=== PATIENT | female | born 1985 | race American Indian/Alaskan Native ===

== ENCOUNTER 2017-01-08 13:57 | Emergency (ER) | payer OTHER, BC ==
[2017-01-08 14:15] VITALS: BMI 38.6
[2017-01-08] MEDS ORDERED: Lidocaine 5% Patch TD STA (14:26)
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
[2017-01-08] MEDS ORDERED: Lidocaine 5% Patch TD ONE (14:32)
[2017-01-08 16:02] LABS: BASO % 0.2 % (0.0-2.0); EOS # 0.1 K/uL (0.0-0.7); EOS % 0.8 % (0.0-4.0); HEMATOCRIT 28.5 % (34.0-47.0); LYMPH # 1.6 K/uL (1.0-4.3); LYMPH % 13.3 % (20.0-40.0); MEAN CELL VOLUME 73.3 fL (81.0-99.0); MEAN CORPUSCULAR HEMOGLOBIN 22.7 pg (27.0-31.0); MEAN PLATELET VOLUME 9.8 fL (7.2-11.7); MONO # 0.8 K/uL (0.0-0.8); MONO % 6.5 % (0.0-10.0)
[2017-01-08 16:19] LABS: ALKALINE PHOSPHATASE 296 U/L (38-126); ALT/SGPT 36 U/L (9-52); AST/SGOT 21 U/L (14-36); BILIRUBIN,TOTAL 0.4 mg/dL (0.2-1.3); BLOOD UREA NITROGEN 7 mg/dL (7-17); CALCIUM 8.6 mg/dl (8.6-10.4); CARBON DIOXIDE 22 mmol/L (22-30); CHLORIDE 102 mmol/L (98-107); GFR AFRICAN-AMERICAN > 60; GLUCOSE,RANDOM 69 mg/dL (65-105); POTASSIUM 3.8 mmol/L (3.6-5.2); SODIUM 132 mmol/L (132-148); TOTAL PROTEIN 8.6 g/dL (6.3-8.3)
[2017-01-08 16:31] LABS: ALB/GLOB RATIO 0.9 (1.0-2.1)
[2017-01-08] MEDS ORDERED: Dextrose 5%/Lactated Ringer's 1,000 ML IV SCH (16:45)
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
[2017-01-08 22:10] VITALS: BP 91/71; PULSE 117; RESP 20; TEMP 98.1; O2SAT 98
== END 2017-01-08 18:09 | disposition home or self-care (01) ==
LOC: C.EROB 13:57 → C.ER 13:57 → SUPCPDRO 13:57 → C.EROB 18:09
DX: Z04.1 Encounter for examination and observation following transport accident (principal)
CPT/HCPCS: 80053; 85025; 86850; 86900; 99285; J7120

== ENCOUNTER 2017-02-07 07:55 | Inpatient (IN) | payer BC ==
[2017-02-07] MEDS ORDERED: Sodium Citrate/Citric Acid 15 ml Sol PO ONE (08:10)
[2017-02-07] MEDS ORDERED: cefOXitin IV 2 gm in Dextrose 2 GM/50 ML BAG IVPB ONE ×3 (08:10→15:00)
[2017-02-07] MEDS ORDERED: Lactated Ringer's 1,000 ML IV SCH (08:15)
[2017-02-07 09:16] LABS: BASO % 0.3 % (0.0-2.0); EOS # 0.1 K/uL (0.0-0.7); EOS % 0.6 % (0.0-4.0); HEMATOCRIT 26.4 % (34.0-47.0); LYMPH # 1.6 K/uL (1.0-4.3); LYMPH % 13.8 % (20.0-40.0); MEAN CORPUSCULAR HEMOGLOBIN 21.7 pg (27.0-31.0); MEAN CORPUSCULAR HGB CONC 30.7 g/dL (33.0-37.0); MONO # 0.9 K/uL (0.0-0.8); MONO % 7.2 % (0.0-10.0); NRBC % 0.2 % (0.0-2.0); RED CELL DISTRIBUTION WIDTH 17.8 % (11.5-14.5); WHITE BLOOD COUNT 11.9 K/uL (4.8-10.8)
[2017-02-07 09:19] LABS: URINE BACTERIA RARE (<OCC); URINE BILIRUBIN NEGATIVE (NEGATIVE); URINE BLOOD NEGATIVE (NEGATIVE); URINE COLOR Straw (YELLOW); URINE GLUCOSE (UA) NORMAL (Normal); URINE KETONE NEGATIVE (NEGATIVE); URINE LEUKOCYTE ESTERASE NEG Leu/uL (Negative); URINE PROTEIN NEGATIVE (NEGATIVE); URINE UROBILINOGEN NORMAL mg/dL (0.2-1.0); WBC URINE 1 /hpf (0-5)
[2017-02-07 09:22] LABS: MEAN CELL VOLUME 70.7 fL (81.0-99.0)
[2017-02-07 09:32] LABS: ALKALINE PHOSPHATASE 360 U/L (38-126); ALT/SGPT 44 U/L (9-52); AST/SGOT 31 U/L (14-36); BILIRUBIN,TOTAL 0.6 mg/dL (0.2-1.3); BLOOD UREA NITROGEN 7 mg/dL (7-17); CALCIUM 8.3 mg/dl (8.6-10.4); CARBON DIOXIDE 26 mmol/L (22-30); CHLORIDE 102 mmol/L (98-107); GFR AFRICAN-AMERICAN > 60; GLUCOSE,RANDOM 79 mg/dL (65-105); POTASSIUM 3.7 mmol/L (3.6-5.2); SODIUM 133 mmol/L (132-148); TOTAL PROTEIN 6.8 g/dL (6.3-8.3)
[2017-02-07] MEDS ORDERED: Sodium Citrate/Citric Acid 15 ml Sol ONE (10:36)
[2017-02-07] MEDS ORDERED: Oxytocin 10 Units/ml Inj ONE (10:37)
[2017-02-07] MEDS ORDERED: Oxytocin 20 units in LR 2,000 ML IV ONE (10:37)
[2017-02-07] MEDS ORDERED: Morphine 1 mg/ml preservative-free Inj(Duramorph) ONE (11:25)
[2017-02-07] MEDS ORDERED: Triamcinolone Acetonide 40 mg/mL Inj IJ ONE (11:45)
[2017-02-07] MEDS ORDERED: Triamcinolone Acetonide 40 mg/mL Inj ONE ×2 (11:55→12:38)
[2017-02-07] MEDS ORDERED: ePHEDrine 50 mg/ml Inj ONE (12:45)
[2017-02-07] MEDS ORDERED: Morphine 4 MG/ML VIAL ONE (13:01)
[2017-02-07] MEDS ORDERED: DiphenhydrAMINE 50 mg/ml Inj IVP PRN (13:11)
[2017-02-07] MEDS ORDERED: cefOXitin IV 2 gm in Dextrose 2 GM/50 ML BAG IVPB SCH (13:15)
--- NOTE | 2017-02-07 14:16 | OBHP ---
Datetime: 02/07/2017 08:21 IP Adm Impression: Term, intrauterine IP Admit Plan: Admit to unit Admit Comment, IP Provider: Patient is a 32 year old at 39w0d CHANDRAKANT 02/14/17 who presents to L +D for scheduled C/S. Patient is doing well, offers no complaints at this time. Endorses +FM, denies CTX, VB, LOF. Patient is a private of Dr Gill. Issues: Denies OB Hx: 1. SAB at 12 weeks 2. 2014 PLTCD 2/2 breech presentation, female infant, 7lbs 15oz, no complications 3. SAB at 8 weeks 4. Current [employer] Hx: LMP - 05/07/16 Triad 15 x regular x 7 days Hx of fibroids Denies ovarian cysts, STIs, abnormal pap smear Allergies: NKDA Medications: PNV Medical Hx: Denies Surgical Hx: C/S x 1, hysteroscopic myomectomy in 2013 and 2015 Social Hx: Denies alcohol, tobacco, drug use; lives with and daughter, unemployed Family Hx: Mother age 70 - HTN, Father ; denies hx of cancer PE: See above A/P: 32 year old at 39w0d presents for scheduled C/S -Stable, afebrile -Admit to unit -CEFM and TOCO -Admission labs: CBC, CMP, TS, UA -LR @ 125cc/hr -Bictra, pepcid, Mefoxitin 2gm preoperatively -Insert Flanagan -Anesthesia notified -yardage caller to OR -Plan discussed with attending Tran Davenport DO PGY-1 agree with above pt seen adn examined for rltcxs as per pmd FHR - Baseline A Provider: 140 Contraction Comments Provider: none Comments, ACOG Physical Exam: VSS Gen: AAOx3 CV: RRR Lungs: CTA B/L Abd: Soft, gravid, Keloid scar over prior incision Ext: No clubbing, cyanosis, edema; no calf tenderness SVE: Deffered IP Hx Assessment: The History has been Reviewed and is Current EGA AdmitDate IP: 39.0 Vital Signs Provider: Reviewed; Within Normal Limits IP Chief Complaint: Scheduled Section NICHD Variability Prov Fetus A: Moderate 6-25bpm NICHD Accel Fetus A IP Provider: 15X15 FHR Category Provider Fetus A: Category I NICHD Decel Fetus A IP Provider: None
[2017-02-07] MEDS: cefOXitin IV 2 gm in Dextrose 2 GM/50 ML BAG IVPB SCH ×2 (15:15→23:15)
[2017-02-07] MEDS: Simethicone 80 mg Chewtab PO SCH ×3 (15:39→22:15)
--- NOTE | 2017-02-07 15:53 | HP ---
HISTORY OF PRESENT ILLNESS: The patient is a 32-year-old female 4, para 1, previous cesarian section x1, at 39 weeks 5 days, complaining of mild contractions since 8.00 a.m. this morning. Denies any leakage of fluids. Denies any vaginal bleeding. course has been essentially unremarkable. PAST MEDICAL HISTORY: Unremarkable. SOCIAL HISTORY: She does not smoke or drink. MEDICATIONS: Currently, she is not taking any calcium or herbal medications. PHYSICAL EXAMINATION: VITAL SIGNS: Blood pressure is 110/70, pulse is 72, respiratory rate is 20, temperature is 98.8. HEAD, EYES, EARS, NOSE AND THROAT: Within normal. CHEST: Clear. CARDIAC: Reveals normal heart sounds without any murmurs. LUNGS: Clear. BREASTS: Reveal no masses. ABDOMEN: Symphysis fundal height is 38 cm, longitudinal lie vertex, heart tones are normal. PELVIC: She has a normal vulva. Bartholin's, urethra and [place]'s glands are within normal. Cervix is 1 cm, 50% effaced, -2 station. ADMITTING DIAGNOSIS: Intrauterine at 39 weeks, previous cesarian section x1, in early labor. PLAN: To perform a lower segment section. Prior to being scheduled for the surgical procedure, the patient underwent an informed consent, discussion, and education session with me in the hospital lasting approximately an hour, during which time, I explained with an understandable terms the following, the nature and extent of disease process and the nature and extent of the contemplated operation. I also explained to her the risks and potential complications of the operative procedures to include but not limited to infection, hemorrhage, deep vein thrombosis, atelectasis, pneumonia, pulmonary embolism, damage to the bladder, damage to the ureter, renal insufficiency, renal failure, wound infection, wound dehiscence, incisional hernia, keloid formation, damage to large and small intestine, damage to inferior vena cava and aorta requiring extensive repair, anesthesia complications, electrolyte imbalance, possibility of , fluid overload, cerebral edema, embolism and other complications that were discussed, but are not listed above. I also discussed with the patient the anticipated benefits and results of the surgery including a conservative estimate of the successful outcome. I discussed with the patient about the operation that are not accomplished. I informed the patient of the possibility of unanticipated pathology requiring a more extensive procedure. All of the questions from the patient were encouraged, welcomed and answered to her satisfaction. The patient had been given the opportunity to store own blood for using in autologous blood transfusion prenatally and she had declined. Paty Arreola MD
[2017-02-07 17:49] LABS: BASO % 0.2 % (0.0-2.0); EOS % 0.2 % (0.0-4.0); HEMATOCRIT 32.6 % (34.0-47.0); LYMPH # 1.1 K/uL (1.0-4.3); LYMPH % 5.5 % (20.0-40.0); MEAN CORPUSCULAR HGB CONC 31.2 g/dL (33.0-37.0); MEAN PLATELET VOLUME 9.4 fL (7.2-11.7); MONO # 1.3 K/uL (0.0-0.8); MONO % 6.5 % (0.0-10.0); NRBC % 0.1 % (0.0-2.0); PLATELET COUNT 103 K/uL (130-400); RED CELL DISTRIBUTION WIDTH 19.7 % (11.5-14.5)
[2017-02-07 17:51] LABS: MEAN CELL VOLUME 73.6 fL (81.0-99.0); WHITE BLOOD COUNT 20.3 K/uL (4.8-10.8)
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
[2017-02-07 19:33] LABS: NEUTROPHIL 89 % (50-75); TOTAL CELLS COUNTED 100
--- NOTE | 2017-02-07 22:27 | OP ---
PROCEDURE DATE: 02/07/2017 PREOPERATIVE DIAGNOSIS: Intrauterine at 39 weeks in labor, decreased movement. POSTOPERATIVE DIAGNOSIS: Intrauterine at 39 weeks in labor, decreased movement. PROCEDURE: Lower segment section. SURGEON: Paty Arreola MD. METAL WINDOW SCREEN ASSEMBLER: Bill Slaughter MD. TYPE OF ANESTHESIA: Spinal. FINDINGS: A live female , Apgars 9 at 1 minute and 9 at 5 minutes with normal tubes and ovaries, nuchal cord x2 tied, right occipital anterior presentation. ESTIMATED BLOOD LOSS: 300 mL. COMPLICATIONS: Nil. DESCRIPTION OF PROCEDURE: After the risks, benefits, and alternatives of the planned procedures, including but not limited to infection, hemorrhage, deep vein thrombosis, atelectasis, pneumonia, pulmonary embolism, and other complications that were discussed, but are not listed above, have been explained to the patient and all her questions answered, informed consent was obtained. The patient was taken to the operating room in a stable condition. Under suitable level of spinal anesthesia, she was prepped and draped in a sterile fashion after having been placed in a supine position. The abdomen was entered through a Pfannenstiel-type incision and carried through the subcutaneous tissues to the fascia. Fascia was opened transversely and dissected off the rectus abdominis musculature. The rectus abdominis musculature was then in the midline to remove the parietal peritoneum, which was entered sharply and incised superiorly and inferiorly. The bladder peritoneum was then incised in a curvilinear fashion and dissected off the lower uterine segment. The lower uterine segment was then entered through a curvilinear incision. Surgeon's fingers were inserted into the lower uterine segment to grasp the 's head, which was lying in a right occipital anterior position. The head was easily delivered. Two nuchal cords were slipped over the baby's head; they were tied. The nose and mouth was suctioned free of amniotic fluid, and the remainder of the infant was delivered without any difficulty. Cord was doubly clamped and cut, and the baby was handed over to the pediatricians who were in attendance. Cord blood was collected with Pitocin running, placenta was manually removed. The endometrium was then cleaned free of remaining membranes and clots. The uterine incision was then closed in layers with the first layer being a running interlocking layer using #1 chromic, and the second layer being used to imbricate the first layer. Hemostasis was good. The bladder peritoneum was then reapproximated using running suture of 2-0 chromic. Peritoneal cavity was then irrigated using copious amounts of saline. Saline was evacuated. The abdomen was then closed in layers with 0 chromic to the parietal peritoneum. Recti muscles were reapproximated using interrupted sutures of 0 chromic. Fascia was reapproximated using 2 separate running sutures of 0 Vicryl to meet in the midline. Subcutaneous tissues were reapproximated using interrupted sutures of 0 plain, and the initial skin incision was reapproximated using 4-0 Vicryl in a subcuticular fashion. Estimated blood loss for the procedure was 300 mL. Pad, needle, and instrument counts were correct x2. There were no complications. Prior the closure of the skin, the skin area had been injected with Kenalog to try to reduce scar tissue formation; and prior to the opening of the abdomen, the old scar had been excised. Paty Arreola MD
[2017-02-08 08:04] LABS: BASO % 0.2 % (0.0-2.0); EOS % 0.2 % (0.0-4.0); HEMATOCRIT 32.4 % (34.0-47.0); LYMPH % 4.9 % (20.0-40.0); MEAN CELL VOLUME 73.1 fL (81.0-99.0); MEAN CORPUSCULAR HEMOGLOBIN 23.2 pg (27.0-31.0); MEAN CORPUSCULAR HGB CONC 31.7 g/dL (33.0-37.0); MEAN PLATELET VOLUME 10.2 fL (7.2-11.7); MONO # 1.4 K/uL (0.0-0.8); MONO % 6.9 % (0.0-10.0); NRBC % 0.1 % (0.0-2.0); PLATELET COUNT 123 K/uL (130-400); RED CELL DISTRIBUTION WIDTH 19.6 % (11.5-14.5); WHITE BLOOD COUNT 20.2 K/uL (4.8-10.8)
[2017-02-08] MEDS: cefOXitin IV 2 gm in Dextrose 2 GM/50 ML BAG IVPB SCH (08:46)
[2017-02-08] MEDS: Simethicone 80 mg Chewtab PO SCH ×4 (09:30→22:18)
[2017-02-08] MEDS: Oxycodone/Acetaminophen 5/325 mg Tab PO PRN ×3 (09:32→18:16)
[2017-02-08] MEDS: Enoxaparin 40 mg Syringe SC SCH (09:34)
[2017-02-08 09:38] LABS: NEUTROPHIL 79 % (50-75); TOTAL CELLS COUNTED 100
[2017-02-08 09:39] LABS: LARGE PLATELETS PRESENT
[2017-02-08] MEDS ORDERED: Bisacodyl 5mg EC Tab PO ONE (12:58)
[2017-02-08] MEDS: cefOXitin 2 GM in Sodium Chloride 0.9% 100 ML IV SCH (17:00)
[2017-02-09] MEDS: cefOXitin 2 GM in Sodium Chloride 0.9% 100 ML IV SCH (00:02)
[2017-02-09] MEDS: Oxycodone/Acetaminophen 5/325 mg Tab PO PRN ×3 (04:57→17:05)
[2017-02-09 08:24] LABS: BASO % 0.1 % (0.0-2.0); EOS # 0.1 K/uL (0.0-0.7); EOS % 0.4 % (0.0-4.0); HEMATOCRIT 30.1 % (34.0-47.0); LYMPH # 1.5 K/uL (1.0-4.3); LYMPH % 7.3 % (20.0-40.0); MEAN CELL VOLUME 73.4 fL (81.0-99.0); MEAN CORPUSCULAR HEMOGLOBIN 23.5 pg (27.0-31.0); MEAN CORPUSCULAR HGB CONC 32.1 g/dL (33.0-37.0); MEAN PLATELET VOLUME 10.3 fL (7.2-11.7); MONO # 1.1 K/uL (0.0-0.8); MONO % 5.5 % (0.0-10.0); PLATELET COUNT 137 K/uL (130-400); RED CELL DISTRIBUTION WIDTH 19.8 % (11.5-14.5); WHITE BLOOD COUNT 20.3 K/uL (4.8-10.8)
[2017-02-09] MEDS: Enoxaparin 40 mg Syringe SC SCH (09:15)
[2017-02-09 09:34] LABS: NEUTROPHIL 90 % (50-75); TOTAL CELLS COUNTED 100
[2017-02-09] MEDS ORDERED: Influenza Vaccine 60 mcg/0.5 mL SYR (4YR UP) IM ONE (14:00)
[2017-02-09] MEDS: Simethicone 80 mg Chewtab PO SCH ×2 (17:00→22:18)
[2017-02-10] MEDS: Oxycodone/Acetaminophen 5/325 mg Tab PO PRN ×3 (00:15→13:33)
[2017-02-10 08:20] LABS: BASO # 0.1 K/uL (0.0-0.2); BASO % 0.6 % (0.0-2.0); EOS # 0.1 K/uL (0.0-0.7); EOS % 0.9 % (0.0-4.0); HEMATOCRIT 28.4 % (34.0-47.0); LYMPH # 1.7 K/uL (1.0-4.3); LYMPH % 12.7 % (20.0-40.0); MEAN CELL VOLUME 74.6 fL (81.0-99.0); MEAN CORPUSCULAR HEMOGLOBIN 23.6 pg (27.0-31.0); MEAN CORPUSCULAR HGB CONC 31.7 g/dL (33.0-37.0); MEAN PLATELET VOLUME 9.5 fL (7.2-11.7); MONO # 0.8 K/uL (0.0-0.8); MONO % 5.9 % (0.0-10.0); RED CELL DISTRIBUTION WIDTH 20.5 % (11.5-14.5); WHITE BLOOD COUNT 13.6 K/uL (4.8-10.8)
--- NOTE | 2017-02-10 09:26 | PN ---
DATE: 02/07/2017 SUBJECTIVE: Patient has no complaints. OBJECTIVE: VITAL SIGNS: Stable. She is afebrile. ABDOMEN: Incision is clean and intact. EXTREMITIES: Nontender. Homans sign is negative with no evidence of DVT. CHEST: Lungs are clear. CARDIAC: Reveals normal heart sounds without any murmurs. ASSESSMENT: Patient is status post section, day 2. PLAN: Continue ambulating the patient. Anticipate discharge on tomorrow morning, on Keflex 500 mg q.i.d. x7 days and Tylenol No 3 two tablets q. 4 hourly p.r.n. for total of 20 tablets, to be followed up in the office in 1 week. Paty Arreola MD
[2017-02-10] MEDS: Simethicone 80 mg Chewtab PO SCH ×2 (09:54→13:33)
[2017-02-10] MEDS: Enoxaparin 40 mg Syringe SC SCH (09:54)
[2017-02-10 19:49] VITALS: BP 116/76; PULSE 97; RESP 18; TEMP 97.8; O2SAT 100
== END 2017-02-10 15:47 | disposition home or self-care (01) | DRG 766 ==
LOC: C.4D 07:55 → C.4M 15:25
PROVIDERS: ADMIT Obstetrics & Gynecology Reproductive Endocrinology; ATTEND Obstetrics & Gynecology Reproductive Endocrinology
PROC: 10D00Z1 Extraction of Products of Conception, Low, Open Approach (ICD-10-PCS; principal; 2017-02-07)
DX: O34.211 Maternal care for low transverse scar from previous cesarean delivery (principal); O69.81X0 Labor and delivery complicated by cord around neck, without compression, not applicable or unspecified; Z3A.39 39 weeks gestation of pregnancy; Z37.0 Single live birth

== ENCOUNTER 2018-02-28 23:14 | Emergency (ER) | payer BC ==
[2018-02-28 23:16] VITALS: BMI 38.6
[2018-03-01 00:15] VITALS: O2SAT 100
[2018-03-01] MEDS ORDERED: Sodium Chloride 0.9% 1,000 ML IV ONE (00:25)
--- NOTE | 2018-03-01 00:25 | C.PDOC ---
History Of Present Illness 33 year old female , , 7 weeks presents to the ED c/o vaginal spotting that she noticed today. Patient denies fever, chills, nausea, vomit, diarrhea, back pain, vaginal discharge, rash. Time Seen by Provider: 03/01/18 00:24 Chief Complaint (Nursing): Female Genitourinary History Per: Patient History/Exam Limitations: no limitations Onset/Duration Of Symptoms: Hrs Current Symptoms Are (Timing): Still Present Quality Of Discomfort: "Pain" Associated Symptoms: denies: Nausea, Vomiting, Diarrhea, Urinary Symptoms Recent travel outside of the [place]: No Additional History Per: Patient Abnormal Vaginal Bleeding: Yes Last Menstral Period: 12/31/17 : 5 Para: 2 Past Medical History Reviewed: Historical Data, Nursing Documentation, Vital Signs Vital Signs: Last Vital Signs Temp 98.3 F 03/01/18 00:12 Pulse 92 H 03/01/18 00:12 Resp 20 03/01/18 00:12 BP 120/85 03/01/18 00:12 Pulse Ox 100 03/01/18 00:12 - Medical History PMH: No Chronic Diseases Denies: Depression, Diabetes, HTN Surgical History: No Surg Hx - [facility] Procedures EXTRACTION OF POC, LOW CERVICAL, OPEN APPROACH (02/07/17) Family History: States: Unknown Family Hx - Social History Hx Alcohol Use: No Hx Substance Use: No - Immunization History Hx Tetanus Toxoid Vaccination: Yes Hx Influenza Vaccination: Yes Hx Pneumococcal Vaccination: No Review Of Systems Constitutional: Negative for: Fever, Chills Cardiovascular: Negative for: Chest Pain Respiratory: Negative for: Shortness of Breath Gastrointestinal: Positive for: Abdominal Pain. Negative for: Nausea, Vomiting Genitourinary: Positive for: Vaginal Bleeding. Negative for: Dysuria, Hematuria , Vaginal Discharge Musculoskeletal: Negative for: Back Pain Skin: Negative for: Rash Physical Exam - Physical Exam Appears: Non-toxic, No Acute Distress Skin: Warm, Dry Head: Normacephalic Eye(s): bilateral: Normal Inspection Neck: Supple Chest: Symmetrical Cardiovascular: Rhythm Regular Respiratory: No Rales, No Rhonchi, No Wheezing Gastrointestinal/Abdominal: Soft, Tenderness (mild suprapubic), No Guarding, No Rebound Back: No CVA Tenderness Extremity: Bilateral: Atraumatic, Normal Color And Temperature, Normal ROM Neurological/Psych: Oriented x3, Normal Speech, Normal Cognition Gait: Steady ED Course And Treatment - Laboratory Results Result Diagrams: 03/01/18 00:46 03/01/18 00:46 O2 Sat by Pulse Oximetry: 100 (ON RA) Pulse Ox Interpretation: Normal - CT Scan/US Pelvic US Other Rad Studies (CT/US): Read By Radiologist, Radiology Report Reviewed CT/US Interpretation: Ultrasound of the , first trimester. Indication: with vaginal bleeding. Technique: Real-time ultrasound images. Findings: The uterus measures 10.4x6.5x6.3 cm. Closed, unremarkable cervix measuring 4.3 cm. Fundal fibroid measuring 1.7 cm. Single, live intrauterine gestation. Estimated gestational age 7 weeks and 3 days. No cardiac activity is detected. Normal ovaries. Impression: demise. . Electronically signed on Mar 01, 2018 3:42:59 AM EST by: Tanya Lowe M.D., Certified by ABR, MSK, Neuroradiology Progress Note: Plan: - Labs. - IV fluids. - UA Disposition Counseled Patient/Family Regarding: Studies Performed, Diagnosis, Need For Followup - Disposition Referrals: Paty Arreola MD [Staff Provider] - Disposition: HOME/ ROUTINE Disposition Time: 00:25 Condition: FAIR Instructions: Miscarriage (DC) Forms: [facility] (Romansh) - Clinical Impression Clinical Impression: demise - Scribe Statement The provider has reviewed the documentation as recorded by the Scribe Mode Musa All medical record entries made by the Scribe were at my direction and personally dictated by me. I have reviewed the chart and agree that the record accurately reflects my personal performance of the history, physical exam, al dical decision making, and the department course for this patient. I have also personally directed, reviewed, and agree with the discharge instructions and disposition.
[2018-03-01 00:50] LABS: BASO % 0.3 % (0.0-2.0); EOS # 0.1 K/uL (0.0-0.7); EOS % 1.7 % (0.0-4.0); HEMOGLOBIN 10.7 g/dL (11.0-16.0); LYMPH # 2.4 K/uL (1.0-4.3); LYMPH % 29.7 % (20.0-40.0); MEAN CORPUSCULAR HGB CONC 31.6 g/dL (33.0-37.0); MONO # 0.6 K/uL (0.0-0.8); MONO % 7.3 % (0.0-10.0); NEUT # 4.9 K/uL (1.8-7.0); RBC 4.43 Mil/uL (3.80-5.20); RED CELL DISTRIBUTION WIDTH 16.9 % (11.5-14.5)
[2018-03-01 00:53] LABS: SQUAMOUS EPITHIAL 1 /hpf (0-5); URINE BILIRUBIN NEGATIVE (NEGATIVE); URINE BLOOD 1+ (NEGATIVE); URINE CLARITY Clear (Clear); URINE COLOR Yellow (YELLOW); URINE GLUCOSE (UA) NORMAL (Normal); URINE LEUKOCYTE ESTERASE NEG Leu/uL (Negative); URINE PROTEIN NEGATIVE (NEGATIVE); URINE UROBILINOGEN NORMAL mg/dL (0.2-1.0)
[2018-03-01 00:59] LABS: PROTHROMBIN TIME 11.2 SECONDS (9.7-12.2)
[2018-03-01 01:01] LABS: HCG,QUALITATIVE URINE POSITIVE (NEGATIVE)
[2018-03-01 01:08] LABS: ALB/GLOB RATIO 1.2 (1.0-2.1); ALBUMIN 4.3 g/dL (3.5-5.0); ALT/SGPT 15 U/L (9-52); AST/SGOT 22 U/L (14-36); BLOOD UREA NITROGEN 11 mg/dL (7-17); CALCIUM 8.9 mg/dl (8.6-10.4); GFR NON-AFRICAN AMERICAN > 60
[2018-03-01 03:54] VITALS: BP 116/82; PULSE 84; RESP 18; TEMP 98.5
--- NOTE | 2018-03-01 12:04 | US ---
Date of service: 03/01/2018 Indication: , vag bleed, hcg 4800 Comparison: None available Technique: Real-time transabdominal pelvic ultrasound was performed. In addition a transvaginal pelvic ultrasound was necessary to better depict pelvic anatomy. Findings: The uterus measures approximately 10.4 x 6.5 x 6.3 cm. Anteverted. Cervix length measures approximately 4.3 cm. 1.4 x 1.2 x 1.7 cm heterogeneous uterine mass, likely fundal fibroid. There is a single intrauterine fetus present. 4 mm yolk sac. The gestational sac measures 1.5 cm and is compatible with a gestational age of 5 weeks 5 days. The crown-rump length measures 1.2 cm and is compatible with a gestational age of 7 weeks 3 days. heart motion is not detected. The right ovary measures 3.7 x 2.5 x 3.5 cm. The left ovary measures 2.5 x 2.5 x 2.2 cm. Blood flow was demonstrated to both ovaries. Impression: Single intrauterine consistent with estimated gestational age 5 weeks 5 days by gestational sac calculation and 7 weeks 3 days by crown-rump length calculation. heart motion is not detected at this time. Correlate clinically, recommend CAMP RECREATION SPECIALIST consultation, and follow-up confirmation ultrasound if indicated. 1.7 cm fundal fibroid. Preliminary impression was provided by [employer]. Study marked for SKYLA review and discussed with SKYLA West on 03/01/18 at 1154am
== END 2018-03-01 03:56 | disposition home or self-care (01) ==
LOC: C.ER 23:14
DX: O36.4XX0 Maternal care for intrauterine death, not applicable or unspecified (principal); Z3A.01 Less than 8 weeks gestation of pregnancy
CPT/HCPCS: 76805; 76817; 80053; 81001; 84702; 84703; 85025; 85610; 85730; 86850; 86900; 96360; 99284; J7030

== ENCOUNTER 2018-05-30 14:00 | Emergency (ER) | payer BC ==
[2018-05-30 14:00] VITALS: BMI 38.6
[2018-05-30 15:29] LABS: HCG,QUALITATIVE URINE POSITIVE (NEGATIVE)
[2018-05-30 15:34] LABS: SQUAMOUS EPITHIAL 4 /hpf (0-5); URINE BACTERIA OCC (<OCC); URINE BILIRUBIN NEGATIVE (NEGATIVE); URINE BLOOD 2+ (NEGATIVE); URINE CLARITY Hazy (Clear); URINE COLOR Yellow (YELLOW); URINE GLUCOSE (UA) NORMAL (Normal); URINE LEUKOCYTE ESTERASE NEG Leu/uL (Negative); URINE PROTEIN NEGATIVE (NEGATIVE); URINE UROBILINOGEN NORMAL mg/dL (0.2-1.0)
--- NOTE | 2018-05-30 15:44 | C.PDOC ---
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 Pt reports she did not have any prior spotting in her until today. Pt is 7 weeks , , P: 2, A:0, miscarriages: 3. Associated sx includes lower back pain. Pt denies any abdominal pain. Chief Complaint (Nursing): Female Genitourinary History Per: Patient History/Exam Limitations: no limitations Onset/Duration Of Symptoms: Hrs (x2) Current Symptoms Are (Timing): Still Present Past Medical History Reviewed: Historical Data, Nursing Documentation, Vital Signs - I Read Books Procedures EXTRACTION OF POC, LOW CERVICAL, OPEN APPROACH (02/07/17) Family History: States: Unknown Family Hx - Social History Hx Alcohol Use: No Hx Substance Use: No - Immunization History Hx Tetanus Toxoid Vaccination: Yes Hx Influenza Vaccination: Yes Hx Pneumococcal Vaccination: No Review Of Systems Gastrointestinal: Negative for: Abdominal Pain Genitourinary: Positive for: Vaginal Bleeding (spotting ) Musculoskeletal: Positive for: Back Pain (low) Physical Exam - Physical Exam Appears: Non-toxic, No Acute Distress Skin: Warm, Dry Head: Normacephalic Eye(s): bilateral: Normal Inspection Chest: Symmetrical, No Deformity Cardiovascular: Rhythm Regular Respiratory: Normal Breath Sounds, No Accessory Muscle Use Gastrointestinal/Abdominal: Soft, No Tenderness Back: No CVA Tenderness, Paraspinal Tenderness, Other (lumbar tenderness ) Extremity: Normal ROM (x4), No Deformity, No Swelling Neurological/Psych: Oriented x3, Normal Speech ED Course And Treatment - Laboratory Results Result Diagrams: 05/30/18 15:42 05/30/18 15:42 Lab Results: Urine Color Yellow (YELLOW) 05/30/18 15:20 Urine Clarity Hazy (Clear) 05/30/18 15:20 Urine pH 6.0 (5.0-8.0) 05/30/18 15:20 Ur Specific [place] 1.005 (1.003-1.030) 05/30/18 15:20 Urine Protein Negative mg/dL (NEGATIVE) 05/30/18 15:20 Urine Glucose (UA) Normal mg/dL (Normal) 05/30/18 15:20 Urine Ketones Negative mg/dL (NEGATIVE) 05/30/18 15:20 Urine Blood 2+ (NEGATIVE) H 05/30/18 15:20 Urine Nitrate Negative (NEGATIVE) 05/30/18 15:20 Urine Bilirubin Negative (NEGATIVE) 05/30/18 15:20 Urine Urobilinogen Normal mg/dL (0.2-1.0) 05/30/18 15:20 Ur Leukocyte Esterase Neg [place]/uL (Negative) 05/30/18 15:20 Urine WBC (Auto) 3 /hpf (0-5) 05/30/18 15:20 Urine RBC (Auto) 29 /hpf (0-3) H 05/30/18 15:20 Ur Squamous Epith Cells 4 /hpf (0-5) 05/30/18 15:20 Urine Bacteria Occ (<OCC) H 05/30/18 15:20 Urine HCG, Qual Positive (NEGATIVE) 05/30/18 15:20 Urine HCG, Qual Positive (NEGATIVE) 05/30/18 15:20 - CT Scan/US obstetrics US Other Rad Studies (CT/US): Read By Radiologist, Radiology Report Reviewed CT/US Interpretation: Accession No. : [id number]. Patient Name / ID : GREG NIEVES / [id number]. Exam Date : 05/30/2018 17:03:59 ( Approved ). Study Comm ent : Sex / Age : F / 33Y. Creator : Yves Wiley MD. Dictator : Yves Wiley MD. Risk Reduction Counselor : Track Helper : Yves Wiley MD. Approver2 : Report Date : 05/30/2018 17:51:26. My Comment : . Date of service: 05/30/2018. PROCEDURE: First trimester ultrasound. Beta HCG results: 49.17 units. HISTORY: , BLEEDING. COMPARISON: 03/01/2018. Pelvic ultrasound. TECHNIQUE: Standard protocol for this study/examination. FINDINGS: Gestational sac measurement 0.87 cm. Out of range. Below threshold for calculation of reliable gestational age. Closed cervix 3.6 cm. Uterus measures 5.7 x 7.1 x 12.5 cm. Stable, multiple uterine fibroids. Right ovary 2.5 x 2.8 x 1.7 cm. Corpus luteal cyst 1.3 x 2.1 cm. Left ovary 1.2 x 2.5 x 2 cm. IMPRESSION: Presumed early intrauterine gestation. Well-formed gestational sac without yolk sac or pole. Additional benign and/or incidental findings described above. Medical Decision Making Medical Decision Making: plans: -- chem labs -- blood work -- Transvaginal US Patient verbalizes understanding and is in agreement with plan. Patient is stable for discharge. 6:24 discussed case with Paty Pino. He reports to tell pt to f/u with him Saturday at 11 am for threatened . Disposition Counseled Patient/Family Regarding: Studies Performed, Diagnosis, Need For Followup, Rx Given - Disposition Referrals: Paty Arreola MD [Staff Provider] - Disposition: HOME/ ROUTINE Disposition Time: 18:28 Condition: STABLE Additional Instructions: Follow up with Dr. 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 - Scribe Statement The provider has reviewed the documentation as recorded by the Scribisma Jiménez Do All medical record entries made by the Scribe were at my direction and personally dictated by me. I have reviewed the chart and agree that the record accurately reflects my personal performance of the history, physical exam, medical decision making, and the department course for this patient. I have also personally directed, reviewed, and agree with the discharge instructions and disposition.
[2018-05-30 15:47] LABS: BASO # 0.1 K/uL (0.0-0.2); BASO % 0.8 % (0.0-2.0); EOS # 0.1 K/uL (0.0-0.7); EOS % 1.8 % (0.0-4.0); HEMOGLOBIN 9.7 g/dL (11.0-16.0); LYMPH % 29.4 % (20.0-40.0); MEAN CELL VOLUME 73.2 fL (81.0-99.0); MEAN CORPUSCULAR HEMOGLOBIN 23.1 pg (27.0-31.0); MEAN CORPUSCULAR HGB CONC 31.5 g/dL (33.0-37.0); MEAN PLATELET VOLUME 9.5 fL (7.2-11.7); MONO # 0.5 K/uL (0.0-0.8); NEUT # 4.1 K/uL (1.8-7.0); NRBC % 0.1 % (0.0-2.0); RBC 4.22 Mil/uL (3.80-5.20); RED CELL DISTRIBUTION WIDTH 17.9 % (11.5-14.5); WHITE BLOOD COUNT 6.7 K/uL (4.8-10.8)
[2018-05-30 16:07] LABS: ALB/GLOB RATIO 1.2 (1.0-2.1); ALBUMIN 4.5 g/dL (3.5-5.0); ALT/SGPT 8 U/L (9-52); AST/SGOT 32 U/L (14-36); BLOOD UREA NITROGEN 10 mg/dL (7-17); CALCIUM 9.4 mg/dl (8.6-10.4); GFR NON-AFRICAN AMERICAN > 60
--- NOTE | 2018-05-30 17:55 | US ---
Date of service: 05/30/2018 PROCEDURE: First trimester ultrasound. Beta HCG results: 49.17 units. HISTORY: , BLEEDING COMPARISON: 03/01/2018. Pelvic ultrasound TECHNIQUE: Standard protocol for this study/examination. FINDINGS: Gestational sac measurement 0.87 cm. Out of range. Below threshold for calculation of reliable gestational age. Closed cervix 3.6 cm. Uterus measures 5.7 x 7.1 x 12.5 cm. Stable, multiple uterine fibroids. Right ovary 2.5 x 2.8 x 1.7 cm. Corpus luteal cyst 1.3 x 2.1 cm. Left ovary 1.2 x 2.5 x 2 cm IMPRESSION: Presumed early intrauterine gestation. Well-formed gestational sac without yolk sac or pole. Additional benign and/or incidental findings described above.
== END 2018-05-30 18:38 | disposition home or self-care (01) ==
LOC: C.ER 14:00
DX: O20.0 Threatened abortion (principal); Z3A.00 Weeks of gestation of pregnancy not specified